=== PATIENT | male | born 1955 | race Caucasian/White ===

== ENCOUNTER 2017-01-30 05:27 | Emergency (ER) | payer OTHER ==
[~2017-01-30] VITALS: Ht 182.9 cm; Wt 77.1 kg
--- NOTE | 2017-01-30 05:43 | NUR ---
PT AMBULATORY TO ER BED 6, PT C/O RIGHT SIDE ABD/FLANK PAIN X 3 HOURS. PT PLACED IN GOWN AND VS MONITOR. PT VSS/RESP EVEN UNLABORED/NAD NOTED/SKIN WARM AND DRY/ DENIES N-V-D/AOX4. AWAITING MD FONSECA. URINE SPECIMEN OBTAINED AND SENT TO THE LAB.
--- NOTE | 2017-01-30 06:12 | NUR ---
AT BEDSIDE FOR EVAL.
[2017-01-30] MEDS ORDERED: KETOROLAC TROMETHAMINE 15 MG/ML VIAL ONE (06:16)
--- NOTE | 2017-01-30 06:20 | NUR ---
18G IV TO LAC USING ASEPTIC TECH, BLOOD DRAWN AND HANDED OVER TO LAB AT THE BEDSIDE.
[2017-01-30] MEDS ORDERED: KETOROLAC TROMETHAMINE INJ 30 MG/ML VIAL IV ONE (06:30)
[2017-01-30] MEDS ORDERED: IV NS 0.9% 500 ML BAG IV ONE (06:30)
[2017-01-30 06:32] LABS: BASOPHILS # (AUTO) 0.1 /CMM (0.0-0.2); BASOPHILS % (AUTO) 0.5 % (0.0-2.0); EOSINOPHILS # (AUTO) 0.1 /CMM (0.0-0.7); EOSINOPHILS % (AUTO) 1.2 % (0.0-6.0); HEMATOCRIT 39 % (39-51); HEMOGLOBIN 13.6 g/dL (13.5-17.5); LYMPHOCYTES % (AUTO) 9.9 % (20.0-44.0); MEAN CORPUSCULAR HEMOGLOBIN 36 PG (26.0-33.0); MEAN CORPUSCULAR HGB CONC 35 g/dl (31.0-36.0); MEAN CORPUSCULAR VOLUME 103 fL (80-96); MONOCYTES # (AUTO) 0.6 /CMM (0.1-1.30); MONOCYTES % (AUTO) 5.8 % (2.0-12.0); NEUTROPHILS % (AUTO) 82.6 % (43.0-81.0); PLATELET COUNT (AUTO) 258 /CMM (150-450); RDW COEFFICIENT OF VARIATION 16.5 (11.5-15.0); RED BLOOD CELL COUNT(AUTO) 3.82 MIL/uL (4.5-6.0); WHITE BLOOD COUNT (AUTO) 9.6 K/uL (4.3-11.0)
[2017-01-30 06:39] LABS: APPEARANCE,URINE CLEAR (CLEAR); BILIRUBIN,URINE NEGATIVE (NEGATIVE); BLOOD, URINE 2+ Ery/uL (NEGATIVE); COLOR,URINE YELLOW (YELLOW); KETONES,URINE NEGATIVE (NEGATIVE); LEUKOCYTE ESTERASE ,URINE NEGATIVE (NEGATIVE); NITRITE, URINE NEGATIVE (NEGATIVE); PH,URINE 5.5 (5.0-8.0); PROTEIN,URINE NEGATIVE (NEGATIVE); UGLUCOSE NEGATIVE (NEGATIVE); UROBILINOGEN,URINE 0.2 EU/dL (0.2)
[2017-01-30 06:45] LABS: CALCIUM, SERUM 9.4 mg/dL (8.5-10.1); CREATININE 1.2 mg/dL (0.6-1.3)
[2017-01-30 06:50] LABS: ALBUMIN 3.8 g/dL (3.4-5.0); BILIRUBIN,DIRECT 0.1 mg/dL (0.0-0.2); BILIRUBIN,TOTAL 0.4 mg/dL (0.2-1.0); TOTAL PROTEIN, SERUM 7.1 g/dL (6.4-8.2)
[2017-01-30 07:11] LABS: BACTERIA,URINE Rare /HPF (None Seen); SQUAMOUS EPITHELIAL CELL,UR Rare /HPF (None Seen); WBC,URINE 0-2 /HPF (0-3)
--- NOTE | 2017-01-30 07:37 | NUR ---
REPORT GIVEN TO DALIA GONZALEZ FOR ELENA.
[2017-01-30 07:57] VITALS: BP 122/80
== END 2017-01-30 07:58 | disposition home or self-care (01) ==
LOC: ER 05:32
DX: N20.0 Calculus of kidney (principal); I25.10 Atherosclerotic heart disease of native coronary artery without angina pectoris; K42.9 Umbilical hernia without obstruction or gangrene; N21.0 Calculus in bladder; K57.30 Diverticulosis of large intestine without perforation or abscess without bleeding
CPT/HCPCS: 36415; 74176; 80048; 80076; 81001; 83690; 85025; 87086; 96374; 99285; A4606; J1885; J7040; Z7610; 81000-TC